=== PATIENT | female | born 2000 ===

== ENCOUNTER 2023-03-04 13:23 | Outpatient (REF) | payer OTHER, SELFPAY | END 2023-03-04 13:24 | disposition home or self-care (01) | LOC: HO.LNP 13:23 | PROVIDERS: Visit Provider Physician Assistant | DX: J02.0 Streptococcal pharyngitis (principal) | CPT/HCPCS: 87070; 87147 ==

== ENCOUNTER 2024-08-14 18:00 | Outpatient (REF) | payer OTHER, SELFPAY ==
--- OUTSIDE RECORDS SUMMARY | 2024-08-14 18:02 | XMS_ITS | Data Portability ---
Author Organization [facility] Service Address [address] [place] [address] Assessment Encounter Date Assessment Date Assessment LastModified by Organization Details LastModified Time 03/29/2023 03/29/2023 Patient agreed and verbally consents to this audio and video Telehealth appt via a secure platform [email or web address] Not available 03/29/2023 10:45:25 Plan of Treatment Reminders Order Date Submit Date Provider Last Modified By Organization Details Last Modified Time Details Appointments NEW PROBLEM 15 2024 01:30P M BRADY MARI Not available Not available Not available ANNUAL EXAM 2024 01:30P M BRADY MARI Not available Not available Not available Lab culture, throat 2024 025 [facility], [address] [place] [address], [id number], 08/14/2024 14:18:03 culture, throat [email or web address] [place] [address] Lab Services (Outpatient), [address] [place] [address], [id number], 01/24/2024 10:39:35 rapid strep group A, throat 20[address] [facility] Internal Medicine, [address] [place] [address], [address], [place], [address], 03/04/2023 10:49:13 culture, throat 2022 023 [facility], [address] [place] [address], [id number], 03/05/2023 12:11:35 Referral None recorded. Procedures None recorded. Surgeries None recorded. Imaging XR, sinuses, paranasal , 3 or more view 2024 025 [email or web address] [facility] - Outpatient Imaging Central Scheduling (Not Breast), [address] [facility], [place], [address], 08/14/2024 14:05:55 Medication Orders Ventolin HFA 90 mcg/actua tion aerosol inhaler 2024 025 [facility]acy #1234, [address] [place], [address], 08/14/2024 13:57:[address] 10 mg tablet 2024 025 [facility] #1234, [address] [place], [address], 08/14/2024 13:57:56 Asmanex HFA 200 mcg/actua tion aerosol inhaler 2024 025 [facility] #1234, [address] [place], [address], 08/14/2024 13:57:57 ondansetr on 8 mg disintegr ating tablet 2024 025 [facility]acy #1234, [address] [place], [address], 08/14/2024 13:50:02 amoxicill in 875 mg-potass ium clavulana te 125 mg tablet 2024 025 [facility]acy #1234, [address] [place], [address], 08/14/2024 13:46:49 amoxicill in 875 mg-potass ium clavulana te 125 mg tablet 2023 024 [email or web address] [facility]/Pharmacy #2025, [address] [place], [address], 08/14/2024 13:46:46 prednison e 10 mg tablet 2023 025 [facility] [address] [place] [address], [address], 08/14/2024 13:45:54 prazosin 1 mg capsule 2022 023 [facility], [address] [place] [address], [address], 08/14/2024 13:46:02 mirtazapi ne 15 mg tablet 2022 023 [facility]2024, [address] [place] [address], [address], 08/14/2024 13:49:50 benzonata te 200 mg capsule 2022 023 [facility]2024, [address] [place] [address], [address], 08/14/2024 13:46:49 Medrol (Cade) 4 mg tablets in a dose pack 2022 023 [facility]2024, [address] [place] [address], [address], 08/14/2024 13:46:14 amoxicill in 875 mg tablet 2022 023 [facility]2024, [address] [place] [address], [address], 08/14/2024 13:46:42 amoxicill in 875 mg-potass ium clavulana te 125 mg tablet 2022 023 [facility]2024, [address] [place] [address], [address], 08/14/2024 13:46:46 prednison e 10 mg tablet 2022 023 [email or web address] [facility], [address] [place], [address], 08/14/2024 13:45:52 Patient TargetsNo targets recorded. Patient InstructionsNo instructions recorded. Reason for Referral None Reported. Results Created Date Observation Date Name Description Value Unit Range Abnormal Flag Note LastModifiedBy Organization Detail LastModifiedTime 03/04/20 23 03/04/2023 rapid strep group A, throa t Strep positi ve Not Available [address], [place], [address], 03/04/2023 10:49:07 Result Notes None recorded. Problems Name Problem SNOMED Code Status Onset Date Resolution Date Notes Provider Name and Address Organization Details Recorded Time Chest pain 41731606 Completed 201906/08/[address] [place] [address], [address], [facility] Internal [facility] 1 11:49:22 Headache 37146523 Active 2019 Ivana perez [facility] 0 14:56:28 Surveill ance of oral contrace ption Completed 201906/08/2020 BRADY MARI [address] [place] [address], [address], [facility] 1 11:52:16 Electron ic cigarett e user 269492534 Active 2019 Ivana perez [facility] Internal [facility] 0 14:57:27 Exercise -induced asthma 66888264 Active 2019 Ivana perez [facility] 0 14:57:45 Anxiety 91409641 Active 2020 BRADY MARI [address] [place] [address], [address], [facility] 1 11:55:33 Depressi ve disorder 48888495 Active 2020 BRADY MARI [address] [place] [address], [address], [facility] 1 11:55:50 Neck pain 65731859 Active 2020 BRADY MARI [address] [place] [address], [address], [facility] 1 09:18:30 Thoracic back pain 341964123 Active 2020 BRADY MARI [address] [place] [address], [address], [facility] 1 09:18:53 Asthma 919086703 Active 2021 BRADY MARI [address] [place] [address], [address], [facility] 2 11:27:36 Chronic cough 07508125 Active 2022 BRADY MARI [address] [place] [address], [address], [facility] Medicine 3 15:19:32 Nausea and vomiting 85062005 Active 2022 BRADY MARI [address] [place] [address], [address], [facility] Medicine 3 14:52:23 Nausea 395766716 Active 2022 BRADY MARI [address] [place] [address], [address], [facility] Medicine 3 10:20:19 Abdomina l pain 18601169 Active 2022 BRADY MARI [address] [place] [address], [address], [facility] Medicine 3 10:23:55 Easy bruising 074127074 Active 2022 BRADY MARI [address] [place] [address], [address], [facility] Medicine 3 13:54:09 Anemia 389333446 Active 2022 BRADY MARI [address] [place] [address], [address], [facility] 3 13:55:57 Aplastic anemia 212933530 Active 2022 BRADY MARI [address] [place], [address], [facility] 3 13:58:06 Thromboc ytopenic disorder 877688093 Active 2022 BRADY MARI [address] [place], [address], [facility] 3 13:59:01 Dysmenor janessa 152188972 Active 2022 BRADY MARI [address] [place], [address], [facility] 3 14:00:36 Unintent ional weight loss 081661393 Active 2022 BRADY MARI [address] [place], [address], [facility] 3 14:01:13 Streptoc occal sore throat 92624541 Active 2022 BRADY MARI [address] [place], [address], [facility] 3 10:44:30 Acute bronchit is 93795900 Active 2022 BRADY MARI [address] [place], [address], [facility] 3 10:43:55 Insomnia 928133614 Active 2022 BRADY MARI [address] [place], [address], [facility] 3 10:46:38 Acute pharyngi tis 158105541 Active 2023 BRADY MARI [address] [place], [address], [facility] Medicine 4 09:36:11 Acute bacteria l bronchit is 451141909 Active 2024 BRADY MARI [address] [place], [address], [facility] Medicine 5 14:21:44 Chronic recurren t sinusiti s 158259434 Active 2024 BRADY MARI [address] [place], [address], [facility] Medicine 13:51:15 Sore throat 053457494 Active 2024 BRADY MARI [address] [place], [address], [facility] Medicine 13:51:24 Moderate persiste nt asthma 709607011 Active 2024 BRADY MARI [address] [place], [address], [facility] Internal Medicine 13:51:54 Problem Notes None recorded. Medical Equipment None Reported. Allergies No known drug allergies Medications Name Sig Start Date Stop Date Status Note LastModified by Organization Details LastModified Time prednisone 10 mg tablet TAKE 5 TABS BY MOUTH X 2 DAYS, 4 TABS X 2 DAYS, 3 TABS X 2 DAYS, 2 TABS X 2 DAYS, 1 TAB X 2 DAYS 08/14 completed Not Available Not Available Not Available clindamycin HCl 300 mg capsule TAKE 1 CAPSULE BY MOUTH EVERY 6 HOURS UNTIL GONE 08/14 completed Not Available Not Available Not Available ibuprofen 800 mg tablet TAKE 1 TABLET BY MOUTH EVERY 8 HOURS NEEDED FOR PAIN 08/14 completed Not Available Not Available Not Available Lidocaine Viscous 2 % mucosal solution TAKE 15 ML EVERY 3 HOURS FOR 14 DAYS 08/15 completed Not Available Not Available Not Available benzonatate 200 mg capsule TAKE 1 CAPSULE BY MOUTH THREE TIMES A DAY NEEDED FOR 7 DAYS 08/14 completed Not Available Not Available Not Available prazosin 1 mg capsule TAKE 1 CAPSULE BY MOUTH EVERY DAY AT BEDTIME FOR 90 DAYS 08/14 completed Not Available Not Available Not Available Zithromax Z-Cade 250 mg tablet TAKE 2 TABLETS (500 MG) BY ORAL ROUTE ONCE DAILY FOR 1 DAY THEN 1 TABLET (250 MG) BY ORAL ROUTE ONCE DAILY FOR 4 DAYS 08/06 completed Not Available Not Available Not Available hydroxyzine pamoate 50 mg capsule TAKE 1 CAPSULE BY MOUTH EVERY 6 HOURS NEEDED ANXIETY 08/14 completed Not Available Not Available Not Available acetaminoph en 500 mg tablet TAKE 2 TABLETS BY MOUTH EVERY 6 HOURS NEEDED FOR PAIN 08/14 completed Not Available Not Available Not Available ondansetron 8 mg disintegrat ing tablet PLACE 1 TABLET TWICE A DAY BY TRANSLING UAL ROUTE NEEDED FOR 30 DAYS. 08/14 completed Not Available Not Available Not Available amoxicillin 875 mg tablet TAKE 1 TABLET BY MOUTH EVERY 12 HOURS FOR 7 DAYS 08/14 completed Not Available Not Available Not Available sertraline 25 mg tablet TAKE 1 TABLET BY MOUTH EVERY DAY 08/15 completed Not Available Not Available Not Available montelukast 10 mg tablet Take 1 tablet every day by oral route for 90 days. 2024 active Not Available Not Available Not Avai lable mirtazapine 15 mg tablet TAKE 1 TABLET BY MOUTH EVERYDAY AT BEDTIME active Not Available Not Available No t Available methylpredn isolone 4 mg tablets in a dose pack TAKE BY MOUTH DIRECTED ON PACKAGE 08/14 completed Not Available Not Available Not Available fluoxetine 20 mg capsule TAKE 1 CAPSULE BY MOUTH EVERY DAY 08/14 completed Not Available Not Available Not Available prazosin 2 mg capsule TAKE 1 CAPSULE BY ORAL ROUTE 1 AT BEDTIME THIS IS A DOSE INCREASE (D/C PRIOR ORDER) 08/14 completed Not Available Not Available Not Available amoxicillin 875 mg-potassiu m clavulanate 125 mg tablet TAKE 1 TABLET BY MOUTH EVERY 12 HOURS FOR 10 DAYS 08/14 completed Not Available Not Available Not Available Ventolin HFA 90 mcg/actuati on aerosol inhaler INHALE 2 PUFFS EVERY 4 HOURS BY INHALATIO N ROUTE FOR 90 DAYS. 2024 active Not Available Not Available Not Avai lable oxycodone 5 mg tablet TAKE 1 TABLET EVERY 4 HOURS NEEDED FOR PAIN. (DO NOT OPERATE HEAVY MACHINERY UNDER THE INFLUENCE ) 08/14 completed Not Available Not Available Not Available escitalopra m 10 mg tablet TAKE 1 TABLET BY MOUTH EVERY DAY 08/14 completed Not Available Not Available Not Available Flovent HFA 110 mcg/actuati on aerosol inhaler INHALE 1 PUFF INTO THE LUNGS TWICE A DAY FOR 30 DAYS 08/14 completed Not Available Not Available Not Available chlorhexidi ne gluconate 0.12 % mouthwash USE 1 CAPFUL BY MOUTH TO SWISH,HOL D 2 MINUTES THEN EXPECTORA TE 3 TIMES A DAY AFTER MEALS 08/14 completed Not Available Not Available Not Available Asmanex HFA 200 mcg/actuati on aerosol inhaler Inhale 2 puffs twice a day by inhalatio n route as directed for 90 days. 2024 active Not Available Not Available Not Avai lable albuterol sulf 90 mcg/actuati on breath activated powder inhaler,sen sor Inhale 2 puffs every 4 hours by inhalatio n route for 90 days. 2022 active Not Available Not Available Not Avai lable Vitals Date Recorded Body height Body mass index (BMI) Body weight Heart rate Oxygen saturation Oxygen saturation in Arterial blood by Pulse oximetry Systolic blood pressure Diastolic blood pressure Provider Name and Address Organization Details Last Updated DateTime 3 167.64 cm 17.5 kg/m2 54975.4 1 g 99 /min 96 % 96 % 104 mm[Hg] 58 mm[Hg] Juanita Olivier [facility] Internal Medicine 3 10:29:05 Date Recorded Body height Body mass index (BMI) Body weight Heart rate Oxygen saturation Oxygen saturation in Arterial blood by Pulse oximetry Systolic blood pressure Diastolic blood pressure Provider Name and Address Organization Details Last Updated DateTime 4 167.64 cm 17.4 kg/m2 44471.9 8 g 99 /min 97 % 97 % 110 mm[Hg] 70 mm[Hg] Pinky Hinojosa [facility] Internal Medicine 4 09:17:00 Date Recorded Body height Body mass index (BMI) Body weight Heart rate Oxygen saturation Oxygen saturation in Arterial blood by Pulse oximetry Systolic blood pressure Diastolic blood pressure Provider Name and Address Organization Details Last Updated DateTime 5 167.64 cm 24.9 kg/m2 72459.2 2 g 68 /min 98 % 98 % 124 mm[Hg] 74 mm[Hg] Víctor Arias [facility] Internal Medicine 5 13:36:55 Social History Question Answer Notes LastModified by Organizat ion Details LastModified Time Tobacco Smoking Status Current Every Day Smoker vaping Chloé perez [facility] Internal Medicine 10/26/2020 09:03:13 Do You Or Have You Ever Used E-cigarettes Or Vape? Current User Of Electronic Cigarettes [email or web address] Information not available 06/08/2020 What Was The Date Of Your Most Recent Tobacco Screening? 08/14/2024 [email or web address] Information not available 08/14/2024 Sex: Unknown Functional Status None recorded. Mental Status None recorded. Family History Relationship Description Onset Age of this Age Resolved Age Notes LastModified by Organization Details LastModified Time Paternal Grandmother Malignant tumor of breast [email or web address] Not available 2019 15:08:58 Paternal Grandmother Type 2 diabetes mellitus [email or web address] Not available 2020 11:53:15 Paternal Aunt Malignant tumor of breast sbucko Not available 2019 15:08:58 Paternal Aunt Type 2 diabetes mellitus [email or web address] Not available 2020 11:53:15 Father Malignant neoplasm of bone sbucko Not available 2019 15:09:22 Medical History No medical history recorded. Gynecological HistoryNo gynecological history recorded. Obstetrics History GPAL:G 0 P 0 0 0 0 Immunizations Vaccine Type Date Status Note Provider Nam e and Address Organization Details Recorded Time varicella 7 completed Not Available [facility] 02/13/2023 20:28:22 varicella 3 completed Not Available [facility] 02/13/2023 20:28:22 Pneumococcal conjugate PCV 13 3 completed Not Available [facility] 02/13/2023 20:28:22 Pneumococcal conjugate PCV 13 3 completed Not Available [facility] 02/13/2023 20:28:22 Pneumococcal conjugate PCV 13 3 completed Not Available [facility] 02/13/2023 20:28:22 Pneumococcal conjugate PCV 13 2 completed Not Available [facility] 02/13/2023 20:28:22 meningococcal ACWY, unspecified formulation 5 completed Not Available [facility] 02/13/2023 20:28:21 MMR 7 completed Not Available [facility] 02/13/2023 20:28:22 MMR 3 completed Not Available [facility] 02/13/2023 20:28:22 Hep B, unspecified formulation 3 completed Not Available [facility] 02/13/2023 20:28:22 Hep B, unspecified formulation 2 completed Not Available [facility] 02/13/2023 20:28:22 Hep B, unspecified formulation 2 completed Not Available [facility] 02/13/2023 20:28:22 Tdap 4 completed Not Available [facility] 02/13/2023 20:28:22 Past Encounters Encounter ID Performer Location Encounter Start Date Encounter Closed Date Diagnosis/Indication Diagnosis SNOMED-CT Code Diagnosis ICD10 Code Diagnosis Note [id number] BRADY MARI [facility] Internal Medicine [address] [facility] [employer] [facility] [place] [address] 06/08/2020 11:44:51 06/08/2020 13:50:00 Exercise-induced asthma 28461603 J45.990 overall the patient needs to quit vaping but is not interested though it is affecting her ability to breathe and increasing her asthma symptoms discussed at least calling her insurance to see what inhalers they cover to see if we can get her on a maintenanc e inhaler for better control Anxiety 42470559 F41.9 increased, but not interested in therapy or medication s at this time will call if she wishes to discuss this further Depressive disorder 6801 9007 F32.9 increased, will monitor patient behavior Headache 95103304 R51.9 intermitte nt and otherwise not enough to need maintenanc e medication or an abortive med on board [id number] BRADY MAR[address] [facility] Internal Medicine [address] [facility],[place] [address] 06/27/2020 08:47:15 06/27/2020 11:01:16 Acute pharyngitis 704323418 J02.9 does have a hx of strep throat, happens to the patient usually once per year, no current sick contacts, will have the patient monitor her symptoms and fu if she develops fever, cough, sob for COVID testing for now will start on abx and see if improvemen t Anterior rhinorrhea 2772 30546 J34.89 mild, on with exposure to cold, dry air, not otherwise concerning to patient or producing copious amounts of mucus production or change in color like green mucus will fu if this changes [id number] BRADY MARI [facility] Internal Medicine [address] [facility],[place] [address] 10/26/2020 08:57:19 10/26/2020 09:33:52 Active or passive immunization 368540086 Z23 up to date Adult heal th examination 610097739 Z00.00 willl start with BW and work up Exercise-i nduced asthma 14113212 J45.990 overall the patient needs to quit vaping but is not interested though it is affecting her ability to breathe and increasing her asthma symptoms discussed at least calling her insurance to see what inhalers they cover to see if we can get her on a maintenanc e inhaler for better control Generalize d anxiety disorder 59419378 F41.1 discussed coping mechanisms and medication s to try the patient will let me know Abdominal pain 60767652 R10.10 will fu with labs and possible US the patient may be malnurishe d Neck pain 48538198 M54.2 fu with XR patient's father has a bone cancer, will fu Thoracic back pain 66441 8004 M54.6 fu with XR when all labs and imaging are in we will fu Dysmenorrhea 582110229 N 94.5 will fu with referral to clerical assigner [id number] [address]ADY [address] [facility] Internal Medicine [address] [facility],[place] [address] 05/10/2021 11:19:48 05/12/2021 11:22:32 Pain in throat 115172765 R07.0 will start on z cade and medrol dose cade Nasal congestion 9482925 0 R09.81 treat with OTC medication s Cough 89226680 R05.1 will start on z cade and medrol dose cade Enlarged tonsil 03616705 2 J35.1 will set up with medrol dose cade Concussion with no loss of consciousness 18796889 S06.0X0A told her to monitor symptoms, use APAP for pain, avoid NSAIDs and avoid harsh bright lightgiven work note [id number] BRADY MARI [facility] [address],[place] [address] 08/14/2021 09:19:12 08/15/2021 11:13:11 Acute tonsillitis 57370361 J03.80 fu on saturday with update about condition [id number] [facility] Internal Medicine [address] [facility] [address] [address] 08/06/2022 11:52:19 08/06/2022 16:35:49 Nausea and vomiting 05082712 R11.2 will set up with zofran for the nausea Asthma 993188918 J45.20 will adjust up to a maintenanc e [id number] BRADY MARI [facility] [address] [facility] [address],[place] [address] 08/15/2022 09:55:49 08/17/2022 13:47:17 Asthma 743309290 J45.20 doing well on the albuterol and flovent comboflare up resolved Nausea 658137161 R11.0 will set up with 30 day scriptchro uziel nausea, maybe related to diet or stress Depressive disorder 1168 9007 F32.9 would like to try prozacsert raline didn't work Abdominal pain 17001587 R10.817 [id number] [facility] Internal Medicine [address] [facility] [address],[place] [address] 12/14/2022 10:34:11 12/14/2022 14:23:50 Easy bruising 021623377 Z78.9 agreed to further work upGI consult was unrevealin g Family his tory of blood coagulation disorder 3283349273 92276 Z83.2 ?bleeding/ coag disorder vs endocrine problems Anemia 020230817 D50.8 full panel Dysmenorrhea 643550679 N 94.5 hormone testing Unintentio nal weight loss 203263089 R63.4 check endocrine levels Abdominal pain 16259131 R10.817 recheck levels for possible colon vs liver complicati ons [id number] BRADY MARI [facility] [address],[place] [address] 03/04/2023 10:21:22 03/04/2023 13:30:07 Streptococcal sore throat 01173572 J02.0 positive [place] out [id number]ADY MAR[address] [facility] Internal Medicine [address] [facility],[place] [address] 03/29/2023 09:23:02 03/29/2023 13:34:50 Acute bronchitis 13870294 J20.0 will start on abx and medrolwill also give her a cough drop Insomnia 479174250 G47.0 9 needs refills [id number] BRADY MARI [facility] Internal Medicine [address] [facility] [address],[place] [address] 01/24/2024 09:07:44 01/24/2024 10:15:44 Acute pharyngitis 525395706 J02.8 does have a hx of strep throat, happens to the patient usually once per year, no current sick contacts, will have the patient monitor her symptoms and fu if she develops fever, cough, sob for COVID testing for now will start on abx and pred to see if improvemen t send out culture [id number] BRADY MARI [facility] Internal Medicine [address] [facility],[place] [address] 06/24/2024 13:10:42 06/24/2024 14:31:27 Acute bacterial bronchitis 554604859 J20.8 start on augmentin for the next 10 days Nausea and vomiting 1693 1999 R11.2 will set up with zofran for the nausea [id number] BRADY MARI [facility] Internal Medicine [address] [facility] [address] [address] 08/14/2024 13:31:16 08/14/2024 14:05:55 Chronic recurrent sinusitis 836494701 J32.4 will set up with XR sinuses Sore throat 477184732 J0 2.8 will set up with culture, throat Moderate p ersistent asthma 368754262 J45.40 will set up with singulair Asthma 905260484 J45.20 doing well on the albuterol and flovent comboflare up resolved Health Concerns Section Related Observation LastModified by Organization Detai ls LastModified Time None Recorded Concern Status LastModified by Organization Details LastModified Time None Recorded Advance Directives Directive None Recorded Payers Encounter Date Sequence Insurance Name Policy Number Policy Katz Covered Member ID Katz Member ID Guarantor Name 03/04/2023 1 [facility] (MEDICAID HMO) [id number] [place] [id number] [place] 03/29/2023 1 [facility] (MEDICAID HMO) [id number] [place] [id number] [place] 01/24/2024 1 [place] [facility] [place] [id number] [place] 06/24/2024 1 [place] M[place] [id number] [place] 08/14/2024 1 [place] M[place] [id number] [place] Notes Date Note Type Note Provider Name and Address Organization Details Recorded Time 3 text/html hx of severe strep throat has strawberry patterned throat+3 tonsilsno breathing issuesmild feverpositive strep send out abx and start pred taper BRADY MARI [address] [place], [address], [facility] 03/04/2023 10:53:28 3 text/html c/o sore throat, bronchitis telemed phone callpt consents to phone call bronchitis, recovering from strep infectiongetting wisdom teeth out next week will start on amox, medrol and tesslon perleswill fu if any issuespharm never dipsense pred last time will refill psych meds, inbetween therapists at this time will fu if no changes or questions BRADY MARI [address] [place], [address], [facility] 03/29/2023 10:50:51 4 text/html c/o sore throat the patient is here for sore throathx of pretty serious strep throat in the past with sig tonsilar swelling, causing obstruction of her airways will start on pred and abx immediatelyculture taken and will be sent to ensure correct treatment plan her tonsils where swollen, 2+, not touchingbreathing not currently effected BRADY MARI [address] [place], [address], [facility] 01/24/2024 09:41:29 5 text/html c/o resp infection The patient is participating in this appointment via telemedicine communication with a phone call/video calling service (Attune)The patient consents to use of these platforms in place of an in-person appointment due to either sick symptoms the patient is presenting with or current office closure due to COVID exposure in order to keep our office staff and patients safe the patient reports that she has been having nausea and vomitingthe patient denies diarrhea or abdominal pain the patient reports that she has a fever 101 Fthe patient reports cough, body aches, headaches, wheezing with some sobthe patient has sore throat but no ear pain headaches probably related to her sinuses the patient states symptoms started resp ie cough wheezing then she developed the restprobable bronchitis vs pnarecommended starting treatment pt will fu if no improvement BRADY MARI [address] [place], [address], [facility] 06/24/2024 14:26:45 5 text/html c/o tonsillar issues the patient reports that she is still having intermittent tonsillar issues with recurrent streph infections the patient reports some swallowing issues in the throat, the patient has a lot of mucus in her throatthe patient does have recurrent Lymphadenopathythe patient reports ear pain, ears feel clogged as well, with hearing loss bilaterallysometimes worse on the R side compared to the left the patient snores and breathes with an open mouth nightthe patient does grind her teeth at night does tend to feel congested most of the days the patient has deviated, better on the R side, L side has more issues with itthe patient does have some fluid build up behind her ears agreed to set up with check and eval of [place], [address], [facility] 08/14/2024 14:06:48 OBGyn Episode No OBEpisode recorded.
--- OUTSIDE RECORDS SUMMARY | 2024-08-14 18:03 | XMS_ITS | Continuity of Care Document ---
Author Organization [facility] Address [address] [place] [address] [place] [address] Assessment No assessment recorded. Plan of Treatment Reminders Order Date Submit Date Provider Last Modified By Organization Details Last Modified Time Details Appointments NEW PROBLEM 15 2024 01:30P M BRADY MARI Not available Not available Not available ANNUAL EXAM 2024 01:30P M BRADY MARI Not available Not available Not available Lab culture, throat 2024 025 [facility], [address] [place] [address], [id number], 08/14/2024 14:18:03 Referral None recorded. Procedures None recorded. Surgeries None recorded. Imaging XR, sinuses, paranasal , 3 or more view 2024 025 [email or web address] [facility] - Outpatient [facility] Central Scheduling (Not Breast), [address] [place] [address], [id number], 08/14/2024 14:05:55 Medication Orders Ventolin HFA 90 mcg/actua tion aerosol inhaler 2024 025 [id number], [address] [place], [address], 08/14/2024 13:57:[address] 10 mg tablet 2024 025 [facility][id number], [address] [place], [address], 08/14/2024 13:57:56 Asmanex HFA 200 mcg/actua tion aerosol inhaler 2024 025 [facility][id number], [address] [place], [address], 08/14/2024 13:57:57 Patient TargetsNo targets recorded. Patient InstructionsNo instructions recorded. Reason for Referral None Reported. Problems Name Problem SNOMED Code Status Onset Date Resolution Date Notes Provider Name and Address Organization Details Recorded Time Chest pain 17839761 Completed 201906/08/2020 BRADY MARI [address] [place] [address], [address], [facility] 1 11:49:22 Headache 68191779 [facility] 14:[facility] Surveill ance of oral contrace ption Completed 201906/08/2020 BRADY MARI [address] [place] [address], [address], [facility] 1 11:52:16 Electron ic cigarett e user 678512653 Active 2019 Iavna perez [facility] 0 14:57:27 Exercise -induced asthma 40154336 Active 2019 Ivana perez [facility] 0 14:57:45 Anxiety 85539750 Active 2020 BRADY MARI [address] [place] [address], [address], [facility] 1 11:55:33 Depressi ve disorder 36122103 Active 2020 BRADY MARI [address] [place] [address], [address], [facility] 1 11:55:50 Neck pain 79863263 Active 2020 BRADY MARI [address] [place] [address], [address], [facility] 1 09:18:30 Thoracic back pain 471613959 Active 2020 BRDAY MARI [address] [place], [address], [facility] 1 09:18:53 Asthma 588921461 Active 2021 BRADY MARI [address] [place] [address], [address], [facility] 2 11:27:36 Chronic cough 38364471 Active 2022 BRADY MARI [address] [place] [address], [address], [facility] 3 15:19:32 Nausea and vomiting 94732734 Active 2022 BRADY MARI [address] [place] [address], [address], [facility] 3 14:52:23 Nausea 109333282 Active 2022 BRADY MARI [address] [place] [address], [address], [facility] 3 10:20:19 Abdomina l pain 15090819 Active 2022 BRADY MARI [address] [place] [address], [address], [facility] 3 10:23:55 Easy bruising 764887749 Active 2022 BRADY MARI [address] [place] [address], [address], [facility] 3 13:54:09 Anemia 780419350 Active 2022 BRADY MARI [address] [place] [address], [address], [facility] 3 13:55:57 Aplastic anemia 444975448 Active 2022 BRADY MARI [address] [place] [address], [address], [facility] 3 13:58:06 Thromboc ytopenic disorder 357488062 Active 2022 BRADY MARI [address] [place], [address], [facility] 3 13:59:01 Dysmenor janessa 983583429 Active 2022 BRADY MARI [address] [place], [address], [facility] 3 14:00:36 Unintent ional weight loss 618626790 Active 2022 BRADY MARI [address] [place], [address], [facility] 3 14:01:13 Streptoc occal sore throat 66663844 Active 2022 BRADY MARI [address] [place], [address], [facility] 3 10:44:30 Acute bronchit is 46837659 Active 2022 BRADY MARI [address] [place], [address], [facility] 3 10:43:55 Insomnia 498981221 Active 2022 BRADY MARI [address] [place], [address], [facility] 3 10:46:38 Acute pharyngi tis 348480882 Active 2023 BRADY MARI [address] [place], [address], [facility] 4 09:36:11 Acute bacteria l bronchit is 071029032 Active 2024 BRADY MARI [address] [place], [address], [facility] 5 14:21:44 Chronic recurren t sinusiti s 894248540 Active 2024 BRADY MARI [address] [place], [address], [facility] 5 13:51:15 Sore throat 481001540 Active 2024 BRADY MARI [address] [place], [address], [facility] 5 13:51:24 Moderate persiste nt asthma 339881407 Active 2024 BRADY MARI [address] [place], [address], [facility] 5 13:51:54 Problem Notes None recorded. Medical Equipment [...] and Address Organization Details Last Updated DateTime 167.64 cm 24.9 kg/m2 27404.2 2 g 68 /min 98 % 98 % 124 mm[Hg] 74 mm[Hg] Víctor Arias [facility] 13:36:55 Social History Question Answer Notes LastModified by Greetz ion Details LastModified Time Tobacco Smoking Status Current Every Day Smoker vaping Chloé perez [facility] 10/26/2020 09:03:13 Do You Or [...] Recorded Time varicella 7 completed Not Available [facility] 02/13/2023 20:28:22 varicella 3 completed Not Available [facility] 02/13/2023 20:28:22 Pneumococcal conjugate PCV 13 3 completed Not Available [facility] 02/13/2023 20:28:22 Pneumococcal conjugate PCV 13 3 completed Not Available [facility] 02/13/2023 20:28:22 Pneumococcal conjugate PCV 13 3 completed Not Available [facility] 02/13/2023 20:28:22 Pneumococcal conjugate PCV 13 2 completed Not Available [facility] 02/13/2023 20:28:22 meningococcal ACWY, unspecified formulation 5 completed Not Available [facility] 02/13/2023 20:28:21 MMR 7 completed Not Available [facility] 02/13/2023 20:28:22 MMR 3 completed Not Available [facility] 02/13/2023 20:28:22 Hep B, unspecified formulation 3 completed Not Available [facility] 02/13/2023 20:28:22 Hep B, unspecified formulation 2 completed Not Available [facility] 02/13/2023 20:28:22 Hep B, unspecified formulation 2 completed Not Available [facility] 02/13/2023 20:28:22 Tdap 4 completed Not Available [facility] 02/13/2023 20:28:22 Past Encounters Encounter ID Performer Location Encounter Start Date Encounter Closed Date Diagnosis/Indication Diagnosis SNOMED-CT Code Diagnosis ICD10 Code Diagnosis Note [id number] BRADY MARI [facility] [address],[place] [address] 08/14/2024 13:31:16 08/14/2024 14:05:55 Chronic recurrent sinusitis 721280733 J32.4 will set up with XR sinuses Sore throat 502158519 J0 2.8 will set up with culture, throat Moderate p ersistent asthma 856731931 J45.40 will set up with singulair Asthma 656110668 J45.20 doing well on the albuterol and flovent comboflare up resolved Health Concerns Section Related Observation LastModified by Organization Detai ls LastModified Time None Recorded Concern Status LastModified by Organization Details LastModified Time None Recorded Payers Encounter Date Sequence Insurance Name Policy Number Policy Katz Covered Member ID Katz Member ID Guarantor Name 08/14/2024 1 [place] [facility] Adri Vee [id number] Adri Vee Notes Date Note Type Note Provider Name and Address Organization Details Recorded Time 5 text/html c/o tonsillar issues the patient [...] check and eval of asthma BRADY MARI [address] [facility], [place], [address], [facility] 08/14/2024 14:06:48 OBGyn Episode No OBEpisode recorded.
== END 2024-08-14 18:01 | disposition home or self-care (01) ==
LOC: HO.MANLNP 18:00
PROVIDERS: Visit Provider Physician Assistant
DX: J02.8 Acute pharyngitis due to other specified organisms (principal)
CPT/HCPCS: 87070